=== PATIENT | male | born 1965 | race African-American/Black ===

== ENCOUNTER 2017-05-20 16:18 | Outpatient (CLI) | payer BC ==
--- NOTE | 2017-05-20 17:30 | RAD ---
RADIOGRAPH CHEST 2 VIEWS: 05/20/17 HISTORY: 52-year-old male with wheezing. FINDINGS: The thoracic aorta is tortuous and ectatic. There is no evidence of air space density, pneumothorax, or pulmonary edema. There is no cardiomegaly or pleural effusion. IMPRESSION: 1) No acute cardiopulmonary findings. 2) Ectasia of thoracic aorta. dinah [] POS: [facility]
== END 2017-05-20 16:19 | disposition home or self-care (01) ==
LOC: RAD-FRANK 16:18
PROVIDERS: ATTEND Nurse Practitioner Family
DX: M25.512 Pain in left shoulder (principal); R06.2 Wheezing; G89.29 Other chronic pain; R05 Cough; I77.810 Thoracic aortic ectasia
CPT/HCPCS: 71046

== ENCOUNTER 2017-05-26 15:43 | Outpatient (CLI) | payer BC ==
--- NOTE | 2017-05-26 15:54 | RAD ---
LEFT SHOULDER THREE VIEWS: 05/26/17 HISTORY: Left shoulder pain. FINDINGS: Acromioclavicular and glenohumeral alignment are maintained. Moderate degree of osteophytosis involve s the acromioclavicular joint. There is downsloping of the acromion. No acute fracture, dislocation o r aggressive osseous erosions are evident. IMPRESSION: Osteoarthritic changes left acromioclavicular joint. Downsloping of the acromion. Clinical correlatio n regarding left rotator cuff symptoms is required. POS: [facility]
== END 2017-05-26 15:44 | disposition home or self-care (01) ==
LOC: RAD-FRANK 15:43
PROVIDERS: ATTEND Nurse Practitioner Family
DX: M25.512 Pain in left shoulder (principal); M19.012 Primary osteoarthritis, left shoulder

== ENCOUNTER 2018-08-25 08:50 | Outpatient (CLI) | payer BC ==
--- NOTE | 2018-08-25 10:25 | ULT ---
ABDOMINAL AORTIC ULTRASOUND: Date: 08/25/18 HISTORY: Aortic aneurysm screening. FINDINGS: Real-time imaging of the abdominal aorta was performed. This shows a normal caliber aorta. Proximally , it measures 2.1 cm. Mid portion measures 1.7. Distally, also measures approximately 1.7 cm in size. Iliac arteries are in the 1.2 cm range. IMPRESSION: No evidence of aortic aneurysm. POS: [facility]
== END 2018-08-25 08:51 | disposition home or self-care (01) ==
LOC: BICULT 08:50
PROVIDERS: ATTEND Nurse Practitioner Family
DX: Z12.5 Encounter for screening for malignant neoplasm of prostate (principal); Z12.11 Encounter for screening for malignant neoplasm of colon; Z13.1 Encounter for screening for diabetes mellitus; Z00.00 Encounter for general adult medical examination without abnormal findings; Z86.79 Personal history of other diseases of the circulatory system; E66.9 Obesity, unspecified; E78.5 Hyperlipidemia, unspecified; R03.0 Elevated blood-pressure reading, without diagnosis of hypertension; R60.0 Localized edema
CPT/HCPCS: 76706